=== PATIENT | male | born 1960 | race Caucasian/White ===

== ENCOUNTER 2023-12-15 08:48 | Outpatient (AMB) | payer BC, SELFPAY ==
[2023-12-15 09:01] VITALS: BP 127/75; PULSE 65; RESP 18; TEMP 35.7; O2SAT 98; BMI 27.5
[2023-12-15 09:02] VITALS: BP 127/75; PULSE 65; RESP 18; TEMP 35.7; O2SAT 98
--- NOTE | 2023-12-15 09:02 | PD.ORTHCLVIS ---
Vital signs 12/15/23 09:01 12/15/23 09:02 Height 1.78 m Height Method Stated Weight 87.231 kg Weight Measurement Method Standing Scale BMI 27.5 BP 127/75 127/75 Blood Pressure Source Automatic Cuff Blood Pressure Location Right Upper Arm Position Sitting Respiration 18 18 Pulse 65 65 Pulse Source Monitor Temp 96.2 F L 96.2 F L Temp Source Temporal Artery Scan Pulse Oximetry (%) 98 98 Oxygen Delivery Method Room Air Med/Allergies Allergies & Medications Allergies No Known Allergies Allergy (Verified 12/15/23 09:01) Medication Reconciliation aspirin 81 mg chewable tablet (Rafi Chewable Low Dose Aspirin) 81 mg PO QDAY 09/13/18 [History Confirmed 12/15/23] losartan 50 mg tablet 50 mg PO QDAY 09/13/18 [History Confirmed 12/15/23] metoprolol succinate 50 mg tablet,extended release 24 hr 50 mg PO QDAY 09/13/18 [History Confirmed 12/15/23] pantoprazole 40 mg tablet,delayed release 40 mg PO QDAY 09/13/18 [History Confirmed 12/15/23] nitroglycerin 0.4 mg sublingual tablet 0.4 mg buccal Q5MIN PRN Chest Pain 11/27/23 [History Confirmed 12/15/23] rosuvastatin 40 mg tablet 40 mg PO QDAY 11/27/23 [History Confirmed 12/15/23] acetaminophen 500 mg tablet (Acetaminophen Extra Strength) 1,000 mg (2 x 500 mg) PO Q6H PRN pain #90 tabs 11/29/23 [Rx Confirmed 12/15/23] aspirin 81 mg tablet,delayed release 81 mg PO BID #60 tabs 11/29/23 [Rx Confirmed 12/15/23] doxycycline hyclate 100 mg tablet 100 mg PO BID #14 tabs 11/29/23 [Rx Confirmed 12/15/23] gabapentin 300 mg capsule 300 mg PO .qhs #30 caps 11/29/23 [Rx Confirmed 12/15/23] oxycodone 5 mg tablet 5 mg PO Q6H PRN pain #28 tabs 11/29/23 [Rx Confirmed 12/15/23] sennosides 8.6 mg-docusate sodium 50 mg tablet (Senna-S) 1 tab-cap PO QDAY #30 tabs 11/29/23 [Rx Confirmed 12/15/23] Subjective Visit Visit for: follow up visit, post op #1 and knee (LEFT) Immunization / Flu Flu Vaccine in the Last 12 Months: No Flu Vaccine Exclusion Criteria: No Exclusion Criteria History of Present Illness Chief complaint: Left total knee replacement 63-year-old male status post left total knee replacement. He is doing well. Pain Pain level (0-10): 4 Pain duration: ALL DAY Pain location: inside (medial) Pain quality: aching Associated signs & symptoms: none Ambulatory data Ambulatory device: other (specify) (CRUTCHES) Treatments Improvement with previous injections: No Improvement with PT: No Improvement with NSAIDS: no Review of Systems Review of Systems: All systems negative unless otherwise noted in HPI. Exam Exam Patient is in no acute distress and is cooperative with the examination today. Patient has a normal mood and affect. Breathing is nonlabored. In no respiratory distress. Bilateral extremities were evaluated and demonstrates sensation intact to light touch. Palpable pedal pulses are present. No significant edema is present. Left knee incision is clean dry intact. Range of motion is 0 to 120 degrees Assessment and Plan Problem List (1) Pain in left knee: Status: Acute Plan: Patient is doing well status post left total knee replacement. He should continue to work with therapy. We will see him back in approximately 4 weeks Advanced Care Planning Discussion Advance care planning discussed with:: patient Office Procedures GNS Level of Care Nursing/Assessment Patient Status: Established Patient Nursing Assessment/Reassesment: Medication Reconciliation, Update PMH in EMR and Vital Signs Coordination of Care: Complex Care and Chronic Disease 1-5, Education Complex Pt/Fam, Consent,records obtained, informed consent and Staff clarify orders Established Patient Charge Established Patient Point Assignment: 90 Established Patient Point Charge: EP Level 3 (80-115) Past Medical History Past Medical History Have you ever been diagnosed with any of the following: Neurological Problems Seizures: No Cardiology Problems Coronary Artery Disease: Yes Hypercholesterolemia: Yes Congestive Heart Failure: No Hypertension: Yes Respiratory Problems Chronic Obstructive Pulmonary Disease (COPD): No Smoking: No Smoking Exposure: No Stomache/Intestinal Problems Gastroesophageal Reflux Disease: Yes Genital/Urinary Problems Renal Disease: No Endocrine Problems Diabetes Mellitus Type 1: No Diabetes Mellitus Type 2: No Hypothyroidism: No Blood Problems Anemia: No Clotting Problems: No Other Problems Hospitalization: No Shingles: No Falls: No Blood Transfusions: No Blood Transfusion Reaction: No Anesthesia Reactions: No Chicken Pox: Yes Measles: Yes Mumps: Yes Cancer: No
== END 2023-12-15 09:38 | disposition home or self-care (01) ==
LOC: HODSRG 08:48
PROVIDERS: PCP Family Medicine; Referring Provider Family Medicine; Supervising Provider Orthopaedic Surgery Adult Reconstructive Orthopaedic Surgery; Visit Provider Orthopaedic Surgery Adult Reconstructive Orthopaedic Surgery
DX: M25.562 Pain in left knee (principal); Z96.652 Presence of left artificial knee joint; I10 Essential (primary) hypertension; E78.00 Pure hypercholesterolemia, unspecified; I25.10 Atherosclerotic heart disease of native coronary artery without angina pectoris
CPT/HCPCS: 99213; G0463

== ENCOUNTER → 2024-01-10 | Outpatient (CLI) | payer BC, SELFPAY ==
--- NOTE | 2024-01-10 | XR_ITS ---
Examination: Left knee 4 views TECHNIQUE: AP oblique lateral axial left knee 4 views Exam date and time: January 10, 2024 1329 hours INDICATIONS: Status post knee arthroplasty November 2023 FINDINGS: Total left knee arthroplasty. Satisfactory alignment Ossification above the medial femoral condyle No fracture No patellar dislocation IMPRESSION: Total left knee arthroplasty with satisfactory alignment
== END | disposition home or self-care (01) ==
PROVIDERS: PCP Family Medicine; Referring Provider Orthopaedic Surgery Adult Reconstructive Orthopaedic Surgery; Visit Provider Orthopaedic Surgery Adult Reconstructive Orthopaedic Surgery
DX: M17.12 Unilateral primary osteoarthritis, left knee (principal); Z96.652 Presence of left artificial knee joint
CPT/HCPCS: 73564

== ENCOUNTER 2024-01-12 13:54 | Outpatient (AMB) | payer BC, SELFPAY ==
[2024-01-12 14:36] VITALS: BP 145/76; PULSE 61; RESP 18; TEMP 36.2; O2SAT 98; BMI 27.9
--- NOTE | 2024-01-12 14:36 | PD.ORTHCLVIS ---
Vital signs 01/12/24 14:36 Height 1.78 m Height Method Stated Weight 88.592 kg Weight Measurement Method Standing Scale BMI 27.9 BP 145/76 H Blood Pressure Source Automatic Cuff Blood Pressure Location Left Upper Arm Position Sitting Respiration 18 Pulse 61 Pulse Source Monitor Temp 97.1 F Temp Source Temporal Artery Scan Pulse Oximetry (%) 98 Oxygen Delivery Method Room Air Med/Allergies Allergies & Medications Allergies No Known Allergies Allergy (Verified 01/12/24 14:43) Medication Reconciliation aspirin 81 mg chewable tablet (Rafi Chewable Low Dose Aspirin) 81 mg PO QDAY 09/13/18 [History Confirmed 01/12/24] losartan 50 mg tablet 50 mg PO QDAY 09/13/18 [History Confirmed 01/12/24] metoprolol succinate 50 mg tablet,extended release 24 hr 50 mg PO QDAY 09/13/18 [History Confirmed 01/12/24] pantoprazole 40 mg tablet,delayed release 40 mg PO QDAY 09/13/18 [History Confirmed 01/12/24] nitroglycerin 0.4 mg sublingual tablet 0.4 mg buccal Q5MIN PRN Chest Pain 11/27/23 [History Confirmed 01/12/24] rosuvastatin 40 mg tablet 40 mg PO QDAY 11/27/23 [History Confirmed 01/12/24] acetaminophen 500 mg tablet (Acetaminophen Extra Strength) 1,000 mg (2 x 500 mg) PO Q6H PRN pain #90 tabs 11/29/23 [Rx Confirmed 01/12/24] aspirin 81 mg tablet,delayed release 81 mg PO BID #60 tabs 11/29/23 [Rx Confirmed 01/12/24] doxycycline hyclate 100 mg tablet 100 mg PO BID #14 tabs 11/29/23 [Rx Confirmed 01/12/24] gabapentin 300 mg capsule 300 mg PO .qhs #30 caps 11/29/23 [Rx Confirmed 01/12/24] oxycodone 5 mg tablet 5 mg PO Q6H PRN pain #28 tabs 11/29/23 [Rx Confirmed 01/12/24] sennosides 8.6 mg-docusate sodium 50 mg tablet (Senna-S) 1 tab-cap PO QDAY #30 tabs 11/29/23 [Rx Confirmed 01/12/24] Subjective Visit Visit for: follow up visit, knee and x-rays Immunization / Flu Flu Vaccine in the Last 12 Months: No Flu Vaccine Exclusion Criteria: No Exclusion Criteria History of Present Illness Chief complaint: 4 WEEK FOLLOW UP LEFT KNEE XRAYS 63-year-old male status post left total knee replacement. He is doing well. Pain Pain level (0-10): 3 Pain duration: WITH MOVEMENT Pain location: inside (medial) Pain quality: dull and aching Pain timing: increases with activity Associated signs & symptoms: none Ambulatory data Ambulatory device: none Treatments Improvement with previous injections: No Improvement with PT: No Improvement with NSAIDS: no Review of Systems Review of Systems: All systems negative unless otherwise noted in HPI. Exam Exam Patient is in no acute distress and is cooperative with the examination today. Patient has a normal mood and affect. Breathing is nonlabored. In no respiratory distress. Bilateral extremities were evaluated and demonstrates sensation intact to light touch. Palpable pedal pulses are present. No significant edema is present. Left knee incision is clean dry intact. Range of motion is 0 to 120 degrees Assessment and Plan Problem List (1) Unilateral primary osteoarthritis, left knee: Status: Acute Plan Patient is doing well postop from a knee replacement. 6 weeks postop. We will see her back in approximately 6 weeks. His Cementless total knee replacements look great Advanced Care Planning Discussion Advance care planning discussed with:: patient Office Procedures GNS Level of Care Nursing/Assessment Patient Status: Established Patient Nursing Assessment/Reassesment: Medication Reconciliation, Update PMH in EMR and Vital Signs Coordination of Care: Complex Care and Chronic Disease 1-5, Education Complex Pt/Fam, Consent,records obtained, informed consent, Lab and Imaging orders, Results/Orders obtained and Staff clarify orders Established Patient Charge Established Patient Point Assignment: 110 Established Patient Point Charge: EP Level 3 (80-115) Past Medical History Past Medical History Have you ever been diagnosed with any of the following: Neurological Problems Seizures: No Cardiology Problems Coronary Artery Disease: Yes Hypercholesterolemia: Yes Congestive Heart Failure: No Hypertension: Yes Respiratory Problems Chronic Obstructive Pulmonary Disease (COPD): No Smoking: No Smoking Exposure: No Stomache/Intestinal Problems Gastroesophageal Reflux Disease: Yes Genital/Urinary Problems Renal Disease: No Endocrine Problems Diabetes Mellitus Type 1: No Diabetes Mellitus Type 2: No Hypothyroidism: No Blood Problems Anemia: No Clotting Problems: No Other Problems Hospitalization: No Shingles: No Falls: No Blood Transfusions: No Blood Transfusion Reaction: No Anesthesia Reactions: No Chicken Pox: Yes Measles: Yes Mumps: Yes Cancer: No
== END 2024-01-12 14:50 | disposition home or self-care (01) ==
LOC: HODSRG 13:54
PROVIDERS: PCP Family Medicine; Referring Provider Family Medicine; Supervising Provider Orthopaedic Surgery Adult Reconstructive Orthopaedic Surgery; Visit Provider Orthopaedic Surgery Adult Reconstructive Orthopaedic Surgery
DX: M17.12 Unilateral primary osteoarthritis, left knee (principal); Z96.652 Presence of left artificial knee joint; I10 Essential (primary) hypertension; E78.00 Pure hypercholesterolemia, unspecified; I25.10 Atherosclerotic heart disease of native coronary artery without angina pectoris
CPT/HCPCS: 99213; G0463

== ENCOUNTER 2024-01-17 13:30 | Outpatient (RCR) | payer BC, SELFPAY ==
--- NOTE | 2024-01-04 11:41 | PT.OIERPT ---
PT OP Initial Eval Patient Information Outpatient Physical Therapy Treatment Date: 01/04/24 Visit Reasons: Right TKA Medical Diagnosis: L TKA Treatment Dx #1: L knee pain Treatment Dx #2: Dec knee extension ROM Start of Care: 01/04/24 Date of Onset: 11/29/23 Smoking Status Smoking Status: Never smoker Initial Assessment Subjective: Pt is 63 yr old male s/p L TKA presents ambulating without assistive device and reports lessening pain and low at rest. 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 Pt c/o L hip pain. PMH: HTN, High cholesterol Pt goal: to fully straighten the knee and get rid of the pain Objective: L knee AROM: ? Flexion: 125 deg ? Extension: -23 deg ? SLR: ? 55 deg with extensor lag ? Strength: ? Quads 4-/5 HS: 4/5 Gait: ambulates with mild antalgia and flexed knee Assessment: Pt presentation consistent with post op L TKA with decreased ROM, strength ? and WB tolerance. Pt lacks knee extension ROM but has full flexion.? Pt requires skilled therapy to improve ROM ? and strength and has good rehab potential.? Eval followed by HEP with printout. Short Term and Room Attendants Goals 1. Independent with HEP ? 2. Improved knee extension to full ? 3. Improved quad and hamstring strength to 4+/5 ? 4. Improved ambulatory tolerance to community distances with symmetrical ? gait pattern. Treatment Plan ? 1. Manual therapy ? 2. Therex ? 3. Modalities as indicated, moist heat, ice, estim Frequency and Duration: 2-3x a week for 18 visits Certification Dates: 01/04/24 to 04/03/24 Procedure Charges OP PT Eval Mod Complex 30 minutes: Yes
--- NOTE | 2024-01-08 15:32 | PT.ODAYNRPT ---
PT Outpatient Daily Note OP Daily Note Outpatient Physical Therapy Treatment Date: 01/08/24 Visit Reasons: Right TKA Subjective: Pain into extension with HEP Objective: See F/S for therex MHP x7' with LLPS Assessment: Good improvement into extension ROM to about -7 deg Plan: Improve knee ROM Length of Time (minutes) of Treatment: 30 Minutes Procedure Charges Therapeutic Exercise 30 minutes: Yes
--- NOTE | 2024-01-09 11:45 | PT.ODAYNRPT ---
PT Outpatient Daily Note OP Daily Note Outpatient Physical Therapy Treatment Date: 01/09/24 Visit Reasons: Right TKA Subjective: Pt c/o R knee achy and sore, was compliant with HEP. Objective: Please see flow sheet for ther ex list. Assessment: Pt demonstrates poor tolerance to knee extension LLPS, modified removing weight for stretch pt tolerated with some soreness. Plan: Assess response to treatment. Length of Time (minutes) of Treatment: 30 Minutes Procedure Charges Therapeutic Exercise 30 minutes: Yes
--- NOTE | 2024-01-10 11:24 | PT.ODAYNRPT ---
PT Outpatient Daily Note OP Daily Note Outpatient Physical Therapy Treatment Date: 01/10/24 Visit Reasons: Right TKA Subjective: Pain into extension with HEP Objective: See F/S for therex MHP x7' with LLPS Assessment: Good improvement into extension ROM to about -8 deg Plan: Improve knee ROM Length of Time (minutes) of Treatment: 30 Minutes Procedure Charges Therapeutic Exercise 30 minutes: Yes
--- NOTE | 2024-01-15 15:36 | PT.ODAYNRPT ---
PT Outpatient Daily Note OP Daily Note Outpatient Physical Therapy Treatment Date: 01/15/24 Visit Reasons: Right TKA Subjective: Pt reports compliance with HEP. Objective: Please see flow sheet for ther ex list. Assessment: Pt presents in clinic with decrease pain allowing for increase ROM during PROM and stretches into knee extension. Plan: Continue with POC. Length of Time (minutes) of Treatment: 30 Minutes Procedure Charges Therapeutic Exercise 30 minutes: Yes
--- NOTE | 2024-01-17 14:10 | PT.ODAYNRPT ---
PT Outpatient Daily Note OP Daily Note Outpatient Physical Therapy Treatment Date: 01/17/24 Visit Reasons: Right TKA Subjective: Pt c/o knee feeling stiff. Objective: Please see flow sheet for the yaritza lsit. Assessment: Performed PROM to R knee, able to achieve increase range with c/o pain. Plan: Continue with POC. Length of Time (minutes) of Treatment: 30 Minutes Procedure Charges Therapeutic Exercise 30 minutes: Yes
== END 2024-01-20 23:59 | disposition home or self-care (01) ==
LOC: CPTX 13:30
PROVIDERS: PCP Family Medicine; Referring Provider Orthopaedic Surgery Adult Reconstructive Orthopaedic Surgery; Visit Provider Orthopaedic Surgery Adult Reconstructive Orthopaedic Surgery
DX: M25.562 Pain in left knee (principal); Z96.652 Presence of left artificial knee joint; M25.552 Pain in left hip
CPT/HCPCS: 97110; 97162

== ENCOUNTER 2024-02-08 16:00 | Outpatient (RCR) | payer BC, SELFPAY ==
--- NOTE | 2024-01-22 17:47 | PT.ODAYNRPT ---
PT Outpatient Daily Note OP Daily Note Outpatient Physical Therapy Treatment Date: 01/22/24 Visit Reasons: Right TKA Subjective: pt. reports can tolerate ther-ex and HEP with progressive overloading L knee with weight at home Objective: see flowsheet for ther-ex L knee MT anterior to posterior knee compression into extension x5 minutes pre MT knee flexion 106 degrees L knee flexion ROM 109 degrees post MT Assessment: L knee into extension increased with PROM of MT anterior to posterior knee compression Plan: continue PT per POC Length of Time (minutes) of Treatment: 30 Minutes Procedure Charges Therapeutic Exercise 30 minutes: Yes
--- NOTE | 2024-01-25 10:51 | PT.ODAYNRPT ---
PT Outpatient Daily Note OP Daily Note Outpatient Physical Therapy Treatment Date: 01/25/24 Visit Reasons: Right TKA Subjective: pt. reports difficult sleeping throughout the night due to pain Objective: AROM L knee extension -11 degrees AROM L knee flexion 118 degrees HP with 10lb on L knee in a Low load prolonged stretch, post x6 mins AROM L knee extension 9 degrees Assessment: PROM Anterior to posterior Compression on L knee with 15 sec holds improves L knee extension to -3 degrees Plan: continue PT per POC to increase L knee extension Length of Time (minutes) of Treatment: 30 Minutes Procedure Charges Therapeutic Exercise 30 minutes: Yes
--- NOTE | 2024-01-29 16:38 | PT.ODAYNRPT ---
PT Outpatient Daily Note OP Daily Note Outpatient Physical Therapy Treatment Date: 01/29/24 Visit Reasons: Right TKA Subjective: pt. reports difficult sleeping throughout the night due to pain Objective: AROM L knee extension -7degrees HP with 10lb on L knee in a Low load prolonged stretch, post x7 mins AROM -6 degrees Assessment: PROM Anterior to posterior Compression on L knee with 15 sec holds improves L knee extension to -5 degrees Plan: continue PT per POC to increase L knee extension Length of Time (minutes) of Treatment: 30 Minutes Procedure Charges Therapeutic Exercise 30 minutes: Yes
--- NOTE | 2024-01-31 17:54 | PT.ODAYNRPT ---
PT Outpatient Daily Note OP Daily Note Outpatient Physical Therapy Treatment Date: 01/31/24 Visit Reasons: Right TKA Subjective: pt. reports a decrease in pain with slow improvements in therapy Objective: see flowsheet for ther-ex R KNEE AROM Goniometer measurements: Knee extension: -11 degrees Knee flexion: 124 degrees Assessment: cold pack with 10 lb weight in low load prolonged stretch increased R knee extension to -7 degrees Plan: continue PT per POC Length of Time (minutes) of Treatment: 30 Minutes Procedure Charges Therapeutic Exercise 30 minutes: Yes
--- NOTE | 2024-02-02 15:23 | PT.ODAYNRPT ---
PT Outpatient Daily Note OP Daily Note Outpatient Physical Therapy Treatment Date: 02/02/24 Visit Reasons: Right TKA Subjective: Pt reports R knee mobility is progressing notices he can extend it more. Objective: Please see flow sheet for ther ex list. Assessment: Pt ROM continues to improve, decrease guarded during PROm allowing for increase range. Plan: Continue with POC. Length of Time (minutes) of Treatment: 30 Minutes Procedure Charges Therapeutic Exercise 30 minutes: Yes
--- NOTE | 2024-02-06 19:08 | PT.ODAYNRPT ---
PT Outpatient Daily Note OP Daily Note Outpatient Physical Therapy Treatment Date: 02/06/24 Visit Reasons: Right TKA Subjective: pt. reports a decrease in pain with slow improvements in therapy Objective: see flowsheet for ther-ex R KNEE AROM Goniometer measurements: Knee extension: -11 degrees Knee flexion: 124 degrees Assessment: cold pack with 10 lb weight in low load prolonged stretch increased R knee extension to -7 degrees Plan: continue PT per POC Length of Time (minutes) of Treatment: 30 Minutes Procedure Charges Therapeutic Exercise 30 minutes: Yes
--- NOTE | 2024-02-08 16:41 | PT.ODS1RPT ---
PT OP Progress/Discharge Note Date of Service: 02/08/24 Progress Note/DC Note Progress Note/Discharge Note: Progress Note Patient Information Visit Reasons: Right TKA Service Continue Service or Discharge: Continue Service Status Subjective: Pt. reports a decrease in pain with slow improvements in therapy but lacking knee extension Objective: see flowsheet for ther-ex R KNEE AROM: Knee extension: -9 degrees Knee flexion: 124 degrees Gait: ambulates with heel toe gait and flexed knee and slower speed. Assessment: Pt has attended 02/06 visits with good progress with therapy goals. He has good flexion ROM and increased R knee extension to -7 degrees Plan: Continue per POC to 18 visits Procedure Charges Therapeutic Exercise 30 minutes: Yes
== END 2024-02-20 23:59 | disposition home or self-care (01) ==
LOC: CPTX 16:00
PROVIDERS: PCP Orthopaedic Surgery Adult Reconstructive Orthopaedic Surgery; Referring Provider Orthopaedic Surgery Adult Reconstructive Orthopaedic Surgery; Visit Provider Orthopaedic Surgery Adult Reconstructive Orthopaedic Surgery
DX: M25.562 Pain in left knee (principal); Z96.652 Presence of left artificial knee joint
CPT/HCPCS: 97110

== ENCOUNTER 2024-02-27 13:35 | Outpatient (AMB) | payer BC, SELFPAY ==
--- NOTE | 2024-02-27 13:48 | ORTHONT_ITS ---
Vital signs 02/27/24 13:49 Height 1.78 m Height Method Stated Weight 93.185 kg Weight Measurement Method Standing Scale BMI 29.4 BP 148/79 H Blood Pressure Source Automatic Cuff Blood Pressure Location Left Upper Arm Position Sitting Respiration 18 Pulse 66 Pulse Source Monitor Temp 97.8 F Temp Source Temporal Artery Scan Pulse Oximetry (%) 98 Oxygen Delivery Method Room Air Med/Allergies Allergies & Medications Allergies No Known Allergies Allergy (Verified 02/27/24 13:49) Medication Reconciliation aspirin 81 mg chewable tablet (Rafi Chewable Low Dose Aspirin) 81 mg PO QDAY 09/13/18 [History Confirmed 02/27/24] losartan 50 mg tablet 50 mg PO QDAY 09/13/18 [History Confirmed 02/27/24] metoprolol succinate 50 mg tablet,extended release 24 hr 50 mg PO QDAY 09/13/18 [History Confirmed 02/27/24] pantoprazole 40 mg tablet,delayed release 40 mg PO QDAY 09/13/18 [History Confirmed 02/27/24] nitroglycerin 0.4 mg sublingual tablet 0.4 mg buccal Q5MIN PRN Chest Pain 11/27/23 [History Confirmed 02/27/24] rosuvastatin 40 mg tablet 40 mg PO QDAY 11/27/23 [History Confirmed 02/27/24] acetaminophen 500 mg tablet (Acetaminophen Extra Strength) 1,000 mg (2 x 500 mg) PO Q6H PRN pain #90 tabs 11/29/23 [Rx Confirmed 02/27/24] aspirin 81 mg tablet,delayed release 81 mg PO BID #60 tabs 11/29/23 [Rx Confirmed 02/27/24] doxycycline hyclate 100 mg tablet 100 mg PO BID #14 tabs 11/29/23 [Rx Confirmed 02/27/24] gabapentin 300 mg capsule 300 mg PO .qhs #30 caps 11/29/23 [Rx Confirmed 02/27/24] oxycodone 5 mg tablet 5 mg PO Q6H PRN pain #28 tabs 11/29/23 [Rx Confirmed 02/27/24] sennosides 8.6 mg-docusate sodium 50 mg tablet (Senna-S) 1 tab-cap PO QDAY #30 tabs 11/29/23 [Rx Confirmed 02/27/24] Exam Exam Patient is in no acute distress and is cooperative with the examination today. Patient has a normal mood and affect. Breathing is nonlabored. In no respiratory distress. Bilateral extremities were evaluated and demonstrates sensation intact to light touch. Palpable pedal pulses are present. No significant edema is present. Left knee incision is clean dry intact. Range of motion is 0 to 120 degrees Assessment and Plan Problem List (1) Unilateral primary osteoarthritis, left knee: Status: Acute Plan Patient is doing well postop from a knee replacement. 6 weeks postop. We will see her back in approximately 3 months for routine evaluation Advanced Care Planning Discussion Advance care planning discussed with:: patient Office Procedures GNS Level of Care Nursing/Assessment Patient Status: Established Patient Nursing Assessment/Reassesment: Medication Reconciliation, Update PMH in EMR and Vital Signs Coordination of Care: Complex Care and Chronic Disease 1-5, Education Complex Pt/Fam, Consent,records obtained, informed consent, Results/Orders obtained and Staff clarify orders Established Patient Charge Established Patient Point Assignment: 95 Established Patient Point Charge: EP Level 3 (80-115) MA Intake Visit Data Collection New Patient or Established: Established Patient (seen at [facility] within 3 years) Reason for Visit:: 4 week follow up left knee and hip pain Seen by Clinical Staff ONLY (RN/MA): No Mix House Operator Required: No PCP or OBGYN visit in last 3 months: Yes Hx Now: No Do You Feel Safe at Home: Yes Authorities Contacted: N/A Questionairres Past Medical History Past Medical History Have you ever been diagnosed with any of the following: Neurological Problems Seizures: No Cardiology Problems Coronary Artery Disease: Yes Hypercholesterolemia: Yes Congestive Heart Failure: No Hypertension: Yes Respiratory Problems Chronic Obstructive Pulmonary Disease (COPD): No Smoking: No Smoking Exposure: No Stomache/Intestinal Problems Gastroesophageal Reflux Disease: Yes Genital/Urinary Problems Renal Disease: No Endocrine Problems Diabetes Mellitus Type 1: No Diabetes Mellitus Type 2: No Hypothyroidism: No Blood Problems Anemia: No Clotting Problems: No Other Problems Hospitalization: No Shingles: No Falls: No Blood Transfusions: No Blood Transfusion Reaction: No Anesthesia Reactions: No Chicken Pox: Yes Measles: Yes Mumps: Yes Cancer: No Subjective Visit Visit for: follow up visit, hip and knee Immunization / Flu Flu Vaccine in the Last 12 Months: No Flu Vaccine Exclusion Criteria: No Exclusion Criteria History of Present Illness Chief complaint: Left total knee replacement Chris is doing well status post left total knee replacement. He reports the pain continues to improve. He still is in physical therapy. Pain Pain level (0-10): 6 Pain duration: constant Pain location: inside (medial) Pain quality: aching Associated signs & symptoms: none Ambulatory data Ambulatory device: none Treatments Improvement with previous injections: No Improvement with PT: No Improvement with NSAIDS: no Review of Systems Review of Systems: All systems negative unless otherwise noted in HPI.
[2024-02-27 13:49] VITALS: BP 148/79; PULSE 66; RESP 18; TEMP 36.6; O2SAT 98; BMI 29.4
== END 2024-02-27 14:23 | disposition home or self-care (01) ==
LOC: HODSRG 13:35
PROVIDERS: PCP Family Medicine; Referring Provider Family Medicine; Supervising Provider Orthopaedic Surgery Adult Reconstructive Orthopaedic Surgery; Visit Provider Orthopaedic Surgery Adult Reconstructive Orthopaedic Surgery
DX: M17.12 Unilateral primary osteoarthritis, left knee (principal); Z96.652 Presence of left artificial knee joint; I10 Essential (primary) hypertension; E78.00 Pure hypercholesterolemia, unspecified; I25.10 Atherosclerotic heart disease of native coronary artery without angina pectoris
CPT/HCPCS: 99213; G0463

== ENCOUNTER 2024-03-21 16:00 | Outpatient (RCR) | payer BC, SELFPAY ==
--- NOTE | 2024-03-18 16:12 | PT.ODAYNRPT ---
PT Outpatient Daily Note OP Daily Note Outpatient Physical Therapy Treatment Date: 03/18/24 Visit Reasons: R TKA Subjective: Pt reports the knee is straighter than before Objective: See F/S for therex Assessment: Improved knee extension to about -7 deg Plan: Continue per POC Length of Time (minutes) of Treatment: 30 Minutes Procedure Charges Therapeutic Exercise 30 minutes: Yes
--- NOTE | 2024-03-21 16:29 | PT.ODAYNRPT ---
PT Outpatient Daily Note OP Daily Note Outpatient Physical Therapy Treatment Date: 03/21/24 Visit Reasons: R TKA Subjective: Pt reports knee is doing better but still has pain when getting up from seated after about ~20 minutes. Objective: Please see flow sheet for ther ex list. Assessment: Added modified split squat exercise, pt demonstrated excessive anterior tibial translation that corrects post verbal cues and demonstration. Plan: Continue withPOC. Length of Time (minutes) of Treatment: 30 Minutes Procedure Charges Therapeutic Exercise 30 minutes: Yes
== END 2024-03-22 23:59 | disposition home or self-care (01) ==
LOC: CPTX 16:00
PROVIDERS: PCP Orthopaedic Surgery Adult Reconstructive Orthopaedic Surgery; Referring Provider Orthopaedic Surgery Adult Reconstructive Orthopaedic Surgery; Visit Provider Orthopaedic Surgery Adult Reconstructive Orthopaedic Surgery
DX: M25.562 Pain in left knee (principal); Z96.652 Presence of left artificial knee joint; M25.552 Pain in left hip; I10 Essential (primary) hypertension
CPT/HCPCS: 97110

== ENCOUNTER 2024-04-10 16:00 | Outpatient (RCR) | payer BC, SELFPAY ==
--- NOTE | 2024-03-26 08:49 | PT.ODAYNRPT ---
PT Outpatient Daily Note OP Daily Note Outpatient Physical Therapy Treatment Date: 03/25/24 Visit Reasons: RT TKA Subjective: Pt reports the knee is straighter than before Objective: See F/S for therex Assessment: Improved knee extension to about -5 deg Plan: Continue per POC Length of Time (minutes) of Treatment: 30 Minutes Procedure Charges Therapeutic Exercise 30 minutes: Yes
--- NOTE | 2024-03-28 16:33 | PT.ODAYNRPT ---
PT Outpatient Daily Note OP Daily Note Outpatient Physical Therapy Treatment Date: 03/28/24 Visit Reasons: RT TKA Subjective: Pt reports progress with knee mobility. Objective: Please see flow sheet for ther ex list. Assessment: Pt instructed on partial forward lunge to work on functional lifting technique. Plan: Continue with POC. Length of Time (minutes) of Treatment: 30 Minutes Procedure Charges Therapeutic Exercise 30 minutes: Yes
--- NOTE | 2024-04-03 17:58 | PT.ODAYNRPT ---
PT Outpatient Daily Note OP Daily Note Outpatient Physical Therapy Treatment Date: 04/03/24 Visit Reasons: RT TKA Subjective: Pt reports the knee is straighter than before Objective: See F/S for therex Assessment: Improved knee extension to about -3 deg Plan: Continue per POC Length of Time (minutes) of Treatment: 30 Minutes Procedure Charges Therapeutic Exercise 30 minutes: Yes
--- NOTE | 2024-04-10 17:21 | PT.ODS1RPT ---
PT OP Progress/Discharge Note Date of Service: 04/10/24 Progress Note/DC Note Progress Note/Discharge Note: DC Note Patient Information Visit Reasons: RT TKA Service Continue Service or Discharge: Discharge Discharge Date: 04/10/24 Status Subjective: Pt. reports a decrease in pain and improvements in therapy and improved strength and knee extension Objective: see flowsheet for ther-ex R KNEE AROM: Knee extension: -3 degrees supine, full in standing Knee flexion: 120 degrees Gait: ambulates with heel toe gait and flexed knee and symmetrical pattern Strength: Quads: 4+/5 HS: 4+/5 Assessment: Pt has attended visits with good progress with therapy goals. He has good flexion ROM and increased R knee extension to -3 degrees in supine and full in standing. Pt has met the goal of improved quad and HS strength to 4+/5 and improved ambulatory distance to community with symmetrical pattern. He is doing HEP independently. Plan: D/C with HEP Procedure Charges Therapeutic Exercise 30 minutes: Yes
== END 2024-04-19 23:59 | disposition home or self-care (01) ==
LOC: CPTX 16:00
PROVIDERS: PCP Orthopaedic Surgery Adult Reconstructive Orthopaedic Surgery; Referring Provider Orthopaedic Surgery Adult Reconstructive Orthopaedic Surgery; Visit Provider Orthopaedic Surgery Adult Reconstructive Orthopaedic Surgery
DX: M25.562 Pain in left knee (principal); M25.552 Pain in left hip; I10 Essential (primary) hypertension; Z96.652 Presence of left artificial knee joint
CPT/HCPCS: 97110

== ENCOUNTER → 2024-05-20 | Outpatient (CLI) | payer BC, SELFPAY ==
[2024-05-20 13:11] LABS: Collection Type, Urine Clean Catch
[2024-05-20 13:28] LABS: Basophils # (Auto) 0.1 Thou/mm3 (0.0-0.2); Basophils % (Auto) 1 % (0-2.5); Eosinophils # (Auto) 0.2 Thou/mm3 (0.0-0.5); Eosinophils % (Auto) 3 % (0-10); Hematocrit 42.2 % (41.0-53.0); Hemoglobin 14.5 g/dL (13.5-16.0); Immature Granulocytes % (Auto) 0 % (0-0); Immature Granulocytes Auto 0.01 Thou/mm3 (0.00-0.00); Lymphocytes # (Auto) 1.6 Thou/mm3 (1.0-4.8); Lymphocytes % (Auto) 28 % (10-50); Mean Corpuscular HGB Conc 34.4 g/dl (31.0-37.0); Mean Corpuscular Hemoglobin 31.3 pg (25.0-35.0); Mean Corpuscular Volume 91 fL (80-100); Monocytes # (Auto) 0.5 Thou/mm3 (0.0-0.8); Monocytes % (Auto) 9 % (0-12); Neutrophils # (Auto) 3.3 Thou/mm3 (1.8-7.7); Neutrophils % (Auto) 59 % (37-80); Nucleated Red Blood Cell % 0 /100 WBC (0); Platelet Count 201 Thou/mm3 (140-440); RDW Standard Deviation 41.8 fL (35.1-43.9); Red Blood Count 4.63 Miln/mm3 (4.50-5.90); White Blood Count 5.7 Thou/mm3 (3.8-10.6)
[2024-05-20 13:42] LABS: Bilirubin,Urine Negative (Negative); Blood,Urine Negative (Negative); Clarity,Urine Clear (Clear/Hazy); Color,Urine Yellow (Lt Yel-Yel); Glucose, Urine Negative (Negative); Ketones,Urine Negative (Negative); Leukocyte Esterase,Urine Negative (Negative); Nitrite,Urine Negative (Negative); PH,Urine 6.5 (5.0-7.0); Protein,Urine Negative (Neg - Trace); RBC,Urine 2 /hpf (0-3); Specific Gravity,Urine 1.022 (1.001-1.035); Squamous Epithelial Cell,Urine < 1 /hpf (0-5); Urobilinogen,Urine Negative mg/dL (0.0-1.0); WBC,Urine 1 /hpf (0-5)
[2024-05-20 13:46] LABS: Prostate Specific Antigen 0.65 ng/mL (0-4.00)
[2024-05-20 13:52] LABS: Alanine Aminotransferase 26 U/L (10-49); Albumin, Serum 4.4 gm/dL (3.4-4.8); Albumin/Globulin Ratio 1.8 (1.2-2.2); Alkaline Phosphatase 75 U/L (46-116); Anion Gap 7 (7-16); Aspartate Amino Transferase 28 U/L (0-34); BUN/Creatinine Ratio 18 Ratio (12-20); Bilirubin,Total 1.9 mg/dL (0.3-1.2); Blood Urea Nitrogen 18 mg/dL (9-23); Calcium 9.6 mg/dL (8.3-10.6); Calcium (Corrected) 9.6 mg/dL (8.5-10.1); Carbon Dioxide 28.2 mMol/L (20.0-31.0); Cardiac Risk Estimate 2.5 RATIO (4.0-6.7); Chloride 105 mMol/L (98-107); Cholesterol 119 mg/dL (132-200); Globulin 2.4 gm/dL (2.3-3.5); Glucose 99 mg/dL (74-106); HDL Cholesterol 47 mg/dL (40-60); LDL Cholesterol,Calculated 60 mg/dL (0-130); Osmolality,Calculated 281 (275-295); Potassium 4.6 mMol/L (3.4-5.1); Sodium 140 mMol/L (136-145); Thyroid Stimulating Hormone 4.68 uIU/mL (0.55-4.78); Total Protein 6.8 gm/dL (5.7-8.2); Triglycerides 60 mg/dL (30-150); eGFR > 60 See Note
== END | disposition home or self-care (01) ==
PROVIDERS: PCP Family Medicine; Referring Provider Family Medicine; Visit Provider Family Medicine
DX: Z00.00 Encounter for general adult medical examination without abnormal findings (principal); I10 Essential (primary) hypertension; I25.10 Atherosclerotic heart disease of native coronary artery without angina pectoris; E78.2 Mixed hyperlipidemia; N40.0 Benign prostatic hyperplasia without lower urinary tract symptoms
CPT/HCPCS: 36415; 80053; 80061; 81001; 84153; 84443; 85025

== ENCOUNTER → 2024-05-24 | Outpatient (CLI) | payer BC, SELFPAY ==
--- NOTE | 2024-05-24 14:37 | XR_ITS ---
Examination: Left knee 4 views TECHNIQUE: AP oblique lateral axial left knee 4 views Exam date and time: May 24, 2024 1453 hours Comparison January 10, 2024 INDICATIONS: Left knee pain years. FINDINGS: Total left knee arthroplasty. Satisfactory alignment Dystrophic ossification adjacent to the distal medial femoral shaft No loosening of the prosthetic components Small knee effusion No patellar dislocation IMPRESSION: Total left knee arthroplasty with satisfactory alignment
--- NOTE | 2024-05-24 14:37 | XR_ITS ---
Examination:Left hip AP, lateral, AP pelvis 3 views Technique: Hip AP lateral, AP pelvis, 3 views Exam date and time:May 24, 2024 1447 hours INDICATIONS: Left hip pain months. FINDINGS: Mild left mild to moderate right hip osteoarthritis No left or right hip fracture or dislocation Bones of the pelvis intact IMPRESSION: Mild left mild to moderate right hip osteoarthritis.
== END | disposition home or self-care (01) ==
PROVIDERS: PCP Family Medicine; Referring Provider Orthopaedic Surgery Adult Reconstructive Orthopaedic Surgery; Visit Provider Orthopaedic Surgery Adult Reconstructive Orthopaedic Surgery
DX: M16.0 Bilateral primary osteoarthritis of hip (principal); M25.562 Pain in left knee; Z96.652 Presence of left artificial knee joint
CPT/HCPCS: 73502; 73564

== ENCOUNTER 2024-05-28 13:48 | Outpatient (AMB) | payer BC, SELFPAY ==
--- NOTE | 2024-05-28 14:12 | ORTHONT_ITS ---
Vital signs 05/28/24 14:14 Height 1.78 m Height Method Stated Weight 95.878 kg Weight Measurement Method Standing Scale BMI 30.2 BP 122/75 Blood Pressure Source Automatic Cuff Blood Pressure Location Right Upper Arm Position Sitting Respiration 18 Pulse 63 Pulse Source Monitor Temp 97.0 F Temp Source Temporal Artery Scan Pulse Oximetry (%) 97 Oxygen Delivery Method Room Air Med/Allergies Allergies & Medications Allergies No Known Allergies Allergy (Verified 05/28/24 14:14) Medication Reconciliation aspirin 81 mg chewable tablet (Rafi Chewable Low Dose Aspirin) 81 mg PO QDAY 09/13/18 [History Confirmed 05/28/24] losartan 50 mg tablet 50 mg PO QDAY 09/13/18 [History Confirmed 05/28/24] metoprolol succinate 50 mg tablet,extended release 24 hr 50 mg PO QDAY 09/13/18 [History Confirmed 05/28/24] pantoprazole 40 mg tablet,delayed release 40 mg PO QDAY 09/13/18 [History Confirmed 05/28/24] nitroglycerin 0.4 mg sublingual tablet 0.4 mg buccal Q5MIN PRN Chest Pain 11/27/23 [History Confirmed 05/28/24] rosuvastatin 40 mg tablet 40 mg PO QDAY 11/27/23 [History Confirmed 05/28/24] acetaminophen 500 mg tablet (Acetaminophen Extra Strength) 1,000 mg (2 x 500 mg) PO Q6H PRN pain #90 tabs 11/29/23 [Rx Confirmed 05/28/24] aspirin 81 mg tablet,delayed release 81 mg PO BID #60 tabs 11/29/23 [Rx Confirmed 05/28/24] doxycycline hyclate 100 mg tablet 100 mg PO BID #14 tabs 11/29/23 [Rx Confirmed 05/28/24] gabapentin 300 mg capsule 300 mg PO .qhs #30 caps 11/29/23 [Rx Confirmed 05/28/24] oxycodone 5 mg tablet 5 mg PO Q6H PRN pain #28 tabs 11/29/23 [Rx Confirmed 05/28/24] sennosides 8.6 mg-docusate sodium 50 mg tablet (Senna-S) 1 tab-cap PO QDAY #30 tabs 11/29/23 [Rx Confirmed 05/28/24] Exam Exam Patient is in no acute distress and is cooperative with the examination today. Patient has a normal mood and affect. Breathing is nonlabored. In no respiratory distress. Bilateral extremities were evaluated and demonstrates sensation intact to light touch. Palpable pedal pulses are present. No significant edema is present. Left knee incision is clean dry intact. Range of motion is 0 to 120 degrees Assessment and Plan Problem List (1) Unilateral primary osteoarthritis, left knee: Status: Acute Plan Patient is doing well postop from a knee replacement 6 month ago. We will see him back in approximately 1 year. He is doing great and has no withdrawal Advanced Care Planning Discussion Advance care planning discussed with:: patient Office Procedures GNS Level of Care Nursing/Assessment Patient Status: Established Patient Nursing Assessment/Reassesment: Medication Reconciliation, Update PMH in EMR and Vital Signs Coordination of Care: Complex Care and Chronic Disease 1-5, Education Complex Pt/Fam, Consent,records obtained, informed consent, Results/Orders obtained and Staff clarify orders Established Patient Charge Established Patient Point Assignment: 95 Established Patient Point Charge: EP Level 3 (80-115) MA Intake Visit Data Collection New Patient or Established: Established Patient (seen at [facility] within 3 years) Reason for Visit:: F/U 3 MONTHS Seen by Clinical Staff ONLY (RN/MA): No Verbal consent obtained for Telemed visit?: No [employer] Required: No PCP or OBGYN visit in last 3 months: Yes Hx Now: No Do You Feel Safe at Home: Yes Authorities Contacted: N/A Questionairres Past Medical History Past Medical History Have you ever been diagnosed with any of the following: Neurological Problems Seizures: No Cardiology Problems Coronary Artery Disease: Yes Hypercholesterolemia: Yes Congestive Heart Failure: No Hypertension: Yes Respiratory Problems Chronic Obstructive Pulmonary Disease (COPD): No Smoking: No Smoking Exposure: No Stomache/Intestinal Problems Gastroesophageal Reflux Disease: Yes Genital/Urinary Problems Renal Disease: No Endocrine Problems Diabetes Mellitus Type 1: No Diabetes Mellitus Type 2: No Hypothyroidism: No Blood Problems Anemia: No Clotting Problems: No Other Problems Hospitalization: No Shingles: No Falls: No Blood Transfusions: No Blood Transfusion Reaction: No Anesthesia Reactions: No Chicken Pox: Yes Measles: Yes Mumps: Yes Cancer: No Subjective Visit Visit for: follow up visit, hip and knee Immunization / Flu Flu Vaccine in the Last 12 Months: No Flu Vaccine Exclusion Criteria: No Exclusion Criteria History of Present Illness Chief complaint: Left total knee replacement Chris is doing well status post left total knee replacement. He reports the pain continues to improve. He still is in physical therapy. Pain Pain level (0-10): 6 Pain duration: constant Pain location: inside (medial), outside (lateral), anterior and posterior Pain quality: sharp, dull and aching Pain timing: increases with activity Associated signs & symptoms: none Ambulatory data Ambulatory device: none Treatments Improvement with previous injections: No Improvement with PT: No Improvement with NSAIDS: no Review of Systems Review of Systems: All systems negative unless otherwise noted in HPI.
[2024-05-28 14:14] VITALS: BP 122/75; PULSE 63; RESP 18; TEMP 36.1; O2SAT 97; BMI 30.2
== END 2024-05-28 14:19 | disposition home or self-care (01) ==
LOC: HODSRG 13:48
PROVIDERS: Supervising Provider Orthopaedic Surgery Adult Reconstructive Orthopaedic Surgery; Visit Provider Orthopaedic Surgery Adult Reconstructive Orthopaedic Surgery
DX: M17.12 Unilateral primary osteoarthritis, left knee (principal); Z96.652 Presence of left artificial knee joint; I10 Essential (primary) hypertension; E78.00 Pure hypercholesterolemia, unspecified; I25.10 Atherosclerotic heart disease of native coronary artery without angina pectoris
CPT/HCPCS: 99213; G0463